=== PATIENT | male | born 1960 | race Two or more races ===

== ENCOUNTER 2024-07-23 12:55 | Outpatient (AMB) | payer MEDICARE, MEDICAID, SELFPAY ==
[2024-07-23 13:03] VITALS: BP 136/82; PULSE 54; RESP 18; TEMP 36.4; O2SAT 97; BMI 39.1
--- NOTE | 2024-07-23 13:03 | PD.ORTHCLVIS ---
Vital signs 07/23/24 13:03 Height 1.75 m Height Method Stated Weight 120.259 kg Weight Measurement Method Standing Scale BMI 39.1 BP 136/82 H Blood Pressure Source Automatic Cuff Blood Pressure Location Left Upper Arm Position Sitting Respiration 18 Pulse 54 L Pulse Source Monitor Temp 97.6 F Temp Source Temporal Artery Scan Pulse Oximetry (%) 97 Oxygen Delivery Method Room Air Med/Allergies Allergies & Medications Allergies No Known Allergies Allergy (Verified 07/23/24 13:03) Medication Reconciliation lisinopril 20 mg-hydrochlorothiazide 12.5 mg tablet 1 tab PO DAILY #0 tabs 12/25/14 [History Confirmed 07/23/24] doxazosin 2 mg tablet 2 mg PO HS 05/04/18 [History Confirmed 07/23/24] tramadol 50 mg tablet 1 tab PO BID PRN Pain 05/04/18 [History Confirmed 07/23/24] ibuprofen 800 mg tablet 800 mg PO Q8H #30 tabs 06/02/19 [Rx Confirmed 07/23/24] atorvastatin 20 mg tablet 20 mg PO HS 11/01/23 [History Confirmed 07/23/24] Exam Exam Breathing is nonlabored. Patient has a normal mood and affect. Bilateral extremities were evaluated and demonstrates sensation intact to light touch. Palpable pedal pulses are present. No significant edema is present. Bilateral hips were examined. The patient has no pain with log roll of the hips. Internal rotation to 30 degrees and external rotation to 30 degrees is painless. Negative FADIR. Left knee was examined today. The left knee is in reasonable alignment. Range of motion from 0-120 degrees. Knee is stable to varus and valgus as well as AP translation with <5mm. Patient has a negative McMurrays. There is no pain with patellofemoral compression and no crepitus noted. The knee is nontender to palpation. The right knee was also examined. The right knee is in varus alignment. Range of motion from 0-115 degrees. Knee is stable to varus and valgus as well as AP translation with <5mm. Patient has a negative McMurrays. There is no pain with patellofemoral compression and no crepitus noted. The knee is tender to palpation medially. An MRI demonstrates a medial meniscus tear as well as severe cartilage loss medially. His x-rays are nonweightbearing and we will get weightbearing films Assessment and Plan Problem List (1) Arthritis of right knee: Status: Acute Plan: Patient is a 64-year-old male with Right knee instability and right knee arthritis. I would like to start by obtaining weightbearing x-rays. We will likely set him up with physical therapy to work on subluxes stability. We will see him back once his x-rays are done Advanced Care Planning Discussion Advance care planning discussed with:: patient Office Procedures GNS Level of Care Nursing/Assessment Patient Status: Initial/New Patient Nursing Assessment/Reassesment: Medication Reconciliation, Update PMH in EMR and Vital Signs Coordination of Care: Complex Care and Chronic Disease 1-5, Education Complex Pt/Fam, Consent,records obtained, informed consent, Results/Orders obtained and Staff clarify orders Special Needs: Language special needs New Patient Charge New Patient Point Assignment: 1094 New Patient Point Charge: DATA SUPPORT SPECIALIST Level 3 (3610-1655) MA Intake Visit Data Collection New Patient or Established: Established Patient (seen at [facility] within 3 years) Reason for Visit:: RIGHT KNEE PAIN Seen by Clinical Staff ONLY (RN/MA): No 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 PCP or OBGYN visit in last 3 months: Yes Hx Now: No Do You Feel Safe at Home: Yes Authorities Contacted: N/A Questionairres Past Medical History Past Medical History Have you ever been diagnosed with any of the following: Neurological Problems Seizures: No Cardiology Problems Hypercholesterolemia: Yes (TAKES MED) Congestive Heart Failure: No Hypertension: Yes (TAKES MED) Respiratory Problems Chronic Obstructive Pulmonary Disease (COPD): No Tuberculosis: No Smoking: No Smoking Cessation Counseling: No Smoking Exposure: No Stomache/Intestinal Problems Hepatitis: No Colorectal Cancer: No Genital/Urinary Problems Renal Disease: No Prostate Cancer: No Benign Prostatic Hyperplasia: Yes (TAKES MED) Reproductive Problems Testicular Cancer: No Musculoskeletal Problems Bone Cancer: No Carpal Tunnel Syndrome: Yes (WALI) Endocrine Problems Diabetes Mellitus Type 1: No Diabetes Mellitus Type 2: No Blood Problems Clotting Problems: No Other Problems Falls: No Organ Transplant: No MRSA: No VRSA: No Vancomycin-Resistant Enterococci: No Measles: Yes Lung Cancer: No Subjective Visit Visit for: new patient and knee (RIGHT) Immunization / Flu Flu Vaccine in the Last 12 Months: Yes Flu Vaccine Exclusion Criteria: Already Received History of Present Illness Chief complaint: Right knee pain Patient is a pleasant 64-year-old male who present today for evaluation of his right knee. He was found to have right knee arthritis and a degenerative meniscal tear. He reports he does not trust his knee but has no pain at all. He cannot work because he does not trust his knee. Pain Pain level (0-10): 0 Pain duration: UNSTABLE Pain location: outside (lateral), anterior and posterior Pain quality: other (specify) Pain timing: stairs Associated signs & symptoms: weakness and stiffness Ambulatory data Ambulatory device: none Treatments Improvement with previous injections: No Improvement with PT: No Improvement with NSAIDS: no Review of Systems Review of Systems: All systems negative unless otherwise noted in HPI.
== END 2024-07-23 13:24 | disposition home or self-care (01) ==
LOC: HODSRG 12:55
PROVIDERS: PCP Internal Medicine; Referring Provider Internal Medicine; Supervising Provider Orthopaedic Surgery Adult Reconstructive Orthopaedic Surgery; Visit Provider Orthopaedic Surgery Adult Reconstructive Orthopaedic Surgery
DX: M17.11 Unilateral primary osteoarthritis, right knee (principal); M23.51 Chronic instability of knee, right knee; I10 Essential (primary) hypertension; E78.00 Pure hypercholesterolemia, unspecified
CPT/HCPCS: 99203; G0463

== ENCOUNTER → 2024-07-23 | Outpatient (CLI) | payer MEDICARE, MEDICAID, SELFPAY ==
--- NOTE | 2024-07-23 14:09 | XR_ITS ---
Examination: Right knee 4 views TECHNIQUE: AP oblique lateral axial right knee 4 views Exam date and time: July 23, 2024 1435 hours INDICATIONS: Right knee pain osteoarthritis 4 months FINDINGS: Moderate to advanced narrowing medial joint space right knee Mild osteoarthritis patellofemoral lateral joint spaces No fracture No patellar dislocation IMPRESSION: Moderate to advanced narrowing medial joint space right knee
== END | disposition home or self-care (01) ==
PROVIDERS: Referring Provider Orthopaedic Surgery Adult Reconstructive Orthopaedic Surgery; Visit Provider Orthopaedic Surgery Adult Reconstructive Orthopaedic Surgery
DX: M25.861 Other specified joint disorders, right knee (principal)
CPT/HCPCS: 73564

== ENCOUNTER → 2024-09-04 | Outpatient (CLI) | payer OTHER, SELFPAY ==
[2024-09-04 09:43] LABS: Glucose Estimated Average 131 mg/dL (80-131); Hemoglobin A1C 6.2 % Hgb (4.8-6.0)
[2024-09-04 09:54] LABS: Prostate Specific Antigen 0.11 ng/mL (0-4.00)
[2024-09-04 10:02] LABS: Alanine Aminotransferase 22 U/L (10-49); Albumin, Serum 4.3 gm/dL (3.4-4.8); Albumin/Globulin Ratio 1.8 (1.2-2.2); Alkaline Phosphatase 87 U/L (46-116); Anion Gap 10 (7-16); Aspartate Amino Transferase 18 U/L (0-34); BUN/Creatinine Ratio 21 Ratio (12-20); Bilirubin,Total 0.5 mg/dL (0.3-1.2); Blood Urea Nitrogen 17 mg/dL (9-23); Calcium 9.8 mg/dL (8.3-10.6); Calcium (Corrected) 9.8 mg/dL (8.5-10.1); Carbon Dioxide 29.4 mMol/L (20.0-31.0); Cardiac Risk Estimate 4.8 RATIO (4.0-6.7); Chloride 101 mMol/L (98-107); Cholesterol 158 mg/dL (132-200); Creatinine (Component) 0.8 mg/dL (0.6-1.3); Globulin 2.4 gm/dL (2.3-3.5); Glucose 128 mg/dL (74-106); HDL Cholesterol 33 mg/dL (40-60); LDL Cholesterol,Calculated 71 mg/dL (0-130); Osmolality,Calculated 282 (275-295); Potassium 4.4 mMol/L (3.4-5.1); Sodium 140 mMol/L (136-145); Total Protein 6.7 gm/dL (5.7-8.2); Triglycerides 271 mg/dL (30-150); eGFR > 60 See Note
== END | disposition home or self-care (01) ==
PROVIDERS: PCP Internal Medicine; Referring Provider Internal Medicine; Visit Provider Internal Medicine
DX: I10 Essential (primary) hypertension (principal); E78.5 Hyperlipidemia, unspecified
CPT/HCPCS: 36415; 80053; 80061; 83036; 84153; 84443

== ENCOUNTER 2024-09-24 14:51 | Outpatient (AMB) | payer OTHER, SELFPAY ==
[2024-09-24 15:28] VITALS: BP 137/73; PULSE 64; RESP 18; TEMP 36.8; O2SAT 92; BMI 39.9
--- NOTE | 2024-09-24 15:28 | PD.ORTHCLVIS ---
Vital signs 09/24/24 15:28 Height 1.75 m Height Method Stated Weight 122.158 kg Weight Measurement Method Standing Scale BMI 39.9 BP 137/73 H Blood Pressure Source Automatic Cuff Blood Pressure Location Right Upper Arm Position Sitting Respiration 18 Pulse 64 Pulse Source Monitor Temp 98.3 F Temp Source Temporal Artery Scan Pulse Oximetry (%) 92 L Oxygen Delivery Method Room Air Med/Allergies Allergies & Medications Allergies No Known Allergies Allergy (Verified 09/24/24 15:29) Medication Reconciliation lisinopril 20 mg-hydrochlorothiazide 12.5 mg tablet 1 tab PO DAILY #0 tabs 12/25/14 [History Confirmed 09/24/24] doxazosin 2 mg tablet 2 mg PO HS 05/04/18 [History Confirmed 09/24/24] tramadol 50 mg tablet 1 tab PO BID PRN Pain 05/04/18 [History Confirmed 09/24/24] Held on 11/02/23. Instructions: Resume on 11/03/23. ibuprofen 800 mg tablet 800 mg PO Q8H #30 tabs 06/02/19 [Rx Confirmed 09/24/24] atorvastatin 20 mg tablet 20 mg PO HS 11/01/23 [History Confirmed 09/24/24] Exam Exam Breathing is nonlabored. Patient has a normal mood and affect. Bilateral extremities were evaluated and demonstrates sensation intact to light touch. Palpable pedal pulses are present. No significant edema is present. Bilateral hips were examined. The patient has no pain with log roll of the hips. Internal rotation to 30 degrees and external rotation to 30 degrees is painless. Negative FADIR. Left knee was examined today. The left knee is in reasonable alignment. Range of motion from 0-120 degrees. Knee is stable to varus and valgus as well as AP translation with <5mm. Patient has a negative McMurrays. There is no pain with patellofemoral compression and no crepitus noted. The knee is nontender to palpation. The right knee was also examined. The right knee is in varus alignment. Range of motion from 0-115 degrees. Knee is stable to varus and valgus as well as AP translation with <5mm. Patient has a negative McMurrays. There is no pain with patellofemoral compression and no crepitus noted. The knee is tender to palpation medially. An MRI demonstrates a medial meniscus tear as well as severe cartilage loss medially. His x-rays are nonweightbearing and we will get weightbearing films Assessment and Plan Problem List (1) Arthritis of right knee: Status: Acute Plan: Patient is a 64-year-old male with Right knee instability and right knee arthritis. His x-rays demonstrate moderate arthritis. We will set him up with physical therapy as he has minimal pain Advanced Care Planning Discussion Advance care planning discussed with:: patient Office Procedures GNS Level of Care Nursing/Assessment Patient Status: Established Patient Nursing Assessment/Reassesment: Medication Reconciliation, Update PMH in EMR and Vital Signs Coordination of Care: Complex Care and Chronic Disease 1-5, Education Complex Pt/Fam, Consent,records obtained, informed consent, Results/Orders obtained and Staff clarify orders Special Needs: Language special needs Established Patient Charge Established Patient Point Assignment: 95 Established Patient Point Charge: EP Level 3 (80-115) MA Intake Visit Data Collection New Patient or Established: Established Patient (seen at [facility] within 3 years) Reason for Visit:: F/U XRAYS Seen by Clinical Staff ONLY (RN/MA): No Verbal consent obtained for Telemed visit?: No 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 PCP or OBGYN visit in last 3 months: Yes Hx Now: No Do You Feel Safe at Home: Yes Authorities Contacted: N/A Questionairres Past Medical History Past Medical History Have you ever been diagnosed with any of the following: Neurological Problems Seizures: No Cardiology Problems Hypercholesterolemia: Yes (TAKES MED) Congestive Heart Failure: No Hypertension: Yes (TAKES MED) Respiratory Problems Chronic Obstructive Pulmonary Disease (COPD): No Tuberculosis: No Smoking: No Smoking Cessation Counseling: No Smoking Exposure: No Stomache/Intestinal Problems Hepatitis: No Colorectal Cancer: No Genital/Urinary Problems Renal Disease: No Prostate Cancer: No Benign Prostatic Hyperplasia: Yes (TAKES MED) Reproductive Problems Testicular Cancer: No Musculoskeletal Problems Bone Cancer: No Carpal Tunnel Syndrome: Yes (WALI) Endocrine Problems Diabetes Mellitus Type 1: No Diabetes Mellitus Type 2: No Blood Problems Clotting Problems: No Other Problems Falls: No Organ Transplant: No MRSA: No VRSA: No Vancomycin-Resistant Enterococci: No Measles: Yes Lung Cancer: No Subjective Visit Visit for: follow up visit, knee and x-rays Immunization / Flu Flu Vaccine in the Last 12 Months: No Flu Vaccine Exclusion Criteria: No Exclusion Criteria History of Present Illness Chief complaint: XRAYS FOLLOW UP Patient is a pleasant 64-year-old male who present today for evaluation of his right knee. He was found to have right knee arthritis and a degenerative meniscal tear. He reports he does not trust his knee but has no pain at all. He cannot work because he does not trust his knee. He reports his knee pain is actually doing better. He has minimal pain and only feels some instability Pain Pain level (0-10): 0 Pain duration: COMES AND GOES Pain location: inside (medial), outside (lateral), anterior and posterior Pain quality: dull and aching Pain timing: increases with activity Associated signs & symptoms: weakness and stiffness Ambulatory data Ambulatory device: none Treatments Improvement with previous injections: No Improvement with PT: No Improvement with NSAIDS: no Review of Systems Review of Systems: All systems negative unless otherwise noted in HPI.
== END 2024-09-24 16:00 | disposition home or self-care (01) ==
LOC: HODSRG 14:51
PROVIDERS: PCP Internal Medicine; Referring Provider Internal Medicine; Supervising Provider Orthopaedic Surgery Adult Reconstructive Orthopaedic Surgery; Visit Provider Orthopaedic Surgery Adult Reconstructive Orthopaedic Surgery
DX: M17.11 Unilateral primary osteoarthritis, right knee (principal); E78.00 Pure hypercholesterolemia, unspecified; I10 Essential (primary) hypertension
CPT/HCPCS: 99213; G0463

== ENCOUNTER → 2024-12-10 | Outpatient (CLI) | payer OTHER, SELFPAY ==
[2024-12-10 09:39] LABS: Basophils # (Auto) 0.1 Thou/mm3 (0.0-0.2); Basophils % (Auto) 0 % (0-2.5); Eosinophils # (Auto) 0.1 Thou/mm3 (0.0-0.5); Eosinophils % (Auto) 1 % (0-10); Hematocrit 43.5 % (41.0-53.0); Hemoglobin 14.9 g/dL (13.5-16.0); Immature Granulocytes % (Auto) 0 % (0-0); Immature Granulocytes Auto 0.03 Thou/mm3 (0.00-0.00); Lymphocytes % (Auto) 18 % (10-50); Mean Corpuscular HGB Conc 34.3 g/dl (31.0-37.0); Mean Corpuscular Hemoglobin 28.3 pg (25.0-35.0); Mean Corpuscular Volume 83 fL (80-100); Monocytes # (Auto) 0.6 Thou/mm3 (0.0-0.8); Monocytes % (Auto) 6 % (0-12); Neutrophils # (Auto) 8.7 Thou/mm3 (1.8-7.7); Neutrophils % (Auto) 75 % (37-80); Nucleated Red Blood Cell % 0 /100 WBC (0); Platelet Count 228 Thou/mm3 (140-440); RDW Standard Deviation 39.8 fL (35.1-43.9); Red Blood Count 5.27 Miln/mm3 (4.50-5.90); White Blood Count 11.5 Thou/mm3 (3.8-10.6)
[2024-12-10 09:49] LABS: Collection Type, Urine Clean Catch
[2024-12-10 09:56] LABS: Glucose Estimated Average 128 mg/dL (80-131); Hemoglobin A1C 6.1 % Hgb (4.8-6.0)
[2024-12-10 10:13] LABS: Alanine Aminotransferase 20 U/L (10-49); Albumin, Serum 4.4 gm/dL (3.4-4.8); Albumin/Globulin Ratio 1.9 (1.2-2.2); Alkaline Phosphatase 91 U/L (46-116); Anion Gap 9 (7-16); Aspartate Amino Transferase 16 U/L (0-34); BUN/Creatinine Ratio 18 Ratio (12-20); Bilirubin,Total 0.8 mg/dL (0.3-1.2); Blood Urea Nitrogen 14 mg/dL (9-23); Calcium 9.3 mg/dL (8.3-10.6); Calcium (Corrected) 9.3 mg/dL (8.5-10.1); Carbon Dioxide 29.4 mMol/L (20.0-31.0); Cardiac Risk Estimate 4.3 RATIO (4.0-6.7); Chloride 100 mMol/L (98-107); Cholesterol 130 mg/dL (132-200); Creatinine (Component) 0.8 mg/dL (0.6-1.3); Globulin 2.3 gm/dL (2.3-3.5); Glucose 105 mg/dL (74-106); HDL Cholesterol 30 mg/dL (40-60); LDL Cholesterol,Calculated 56 mg/dL (0-130); Osmolality,Calculated 276 (275-295); Potassium 4.4 mMol/L (3.4-5.1); Sodium 138 mMol/L (136-145); Thyroid Stimulating Hormone 1.95 uIU/mL (0.55-4.78); Total Protein 6.7 gm/dL (5.7-8.2); Triglycerides 218 mg/dL (30-150); eGFR > 60 See Note
[2024-12-10 10:35] LABS: Bilirubin,Urine Negative (Negative); Blood,Urine Negative (Negative); Clarity,Urine Clear (Clear/Hazy); Color,Urine Lt-Yellow (Lt Yel-Yel); Glucose, Urine Negative (Negative); Ketones,Urine Negative (Negative); Leukocyte Esterase,Urine Negative (Negative); Nitrite,Urine Negative (Negative); Protein,Urine Negative (Neg - Trace); RBC,Urine 2 /hpf (0-3); Specific Gravity,Urine 1.015 (1.001-1.035); Squamous Epithelial Cell,Urine < 1 /hpf (0-5); Urobilinogen,Urine Negative mg/dL (0.0-1.0); WBC,Urine < 1 /hpf (0-5)
== END | disposition home or self-care (01) ==
PROVIDERS: PCP Internal Medicine; Referring Provider Internal Medicine; Visit Provider Internal Medicine
DX: I10 Essential (primary) hypertension (principal); E78.5 Hyperlipidemia, unspecified
CPT/HCPCS: 36415; 80053; 80061; 81001; 83036; 84443; 85025

== ENCOUNTER 2024-12-11 19:29 | Observation (INO) | payer OTHER, SELFPAY ==
[2024-12-11 19:29] VITALS: PULSE 74; RESP 16; O2SAT 99; BMI 38.0
[2024-12-11 20:21] VITALS: BP 125/66; PULSE 88; RESP 19; TEMP 37.1; O2SAT 96
--- NOTE | 2024-12-11 20:48 | PD.EDNV ---
Nausea/Vomit./Diarrhea-RME/HPI General Chief complaint: Abdominal Pain Stated complaint: ABD PAIN, DIARRHEA X 1DAY Time Seen by Provider: 12/11/24 20:30 Arrival date/time: 12/11/24 19:29 64M with history of HTN presents to ED with 1 day of N/V, ab cramping, and non-bloody diarrhea after he ate something. Limitations: no limitations Related Data Home Medications ?Medication ?Instructions ?Recorded ?Confirmed lisinopril 20 1 tab PO DAILY #0 tabs 12/25/14 09/24/24 mg-hydrochlorothiazide 12.5 mg tablet doxazosin 2 mg tablet 2 mg PO HS 05/04/18 09/24/24 tramadol 50 mg tablet 1 tab PO BID PRN Pain 05/04/18 09/24/24 Held on 11/02/23. Instructions: Resume on 11/03/23. atorvastatin 20 mg tablet 20 mg PO HS 11/01/23 09/24/24 Previous Rx's ?Medication ?Instructions ?Recorded ibuprofen 800 mg tablet 800 mg PO Q8H #30 tabs 06/02/19 Allergies Allergy/AdvReac Type Severity Reaction Status Date / Time No Known Allergies Allergy Verified 09/24/24 15:29 Review of Systems Review of Systems Systems Reviewed: All systems reviewed, normal except as documented Constitutional Constitutional: Reports system reviewed and no additional complaints, except as documented, Reports as per HPI, Reports chills, Reports fever(s) and Denies headache(s) ENT Ears, Nose, Mouth, and Throat: Denies disequilibrium and Denies headache(s) Cardiovascular Cardiovascular: Reports system reviewed and no additional complaints, except as documented, Denies chest pain and Denies dyspnea Respiratory Respiratory: Reports system reviewed and no additional complaints, except as documented, Denies cough and Denies dyspnea Gastrointestinal Gastrointestinal: Reports system reviewed and no additional complaints, except as documented, Reports as per HPI, Reports abdominal pain, Reports diarrhea, Reports nausea and Reports vomiting Neurologic Neurologic: Reports system reviewed and no additional complaints, except as documented, Denies confusion, Denies disequilibrium and Denies headache(s) Psychiatric Psychiatric: Denies confusion Past Medical History Past Medical History NEUROLOGIC: Negative Neurological Disorders or Seizures CARDIAC: Positive Cardiac Disorders, Hypercholesterolemia (TAKES MED) and Hypertension (TAKES MED); Negative Congestive Heart Failure RESPIRATORY: Negative Chronic Obstructive Pulmonary Disease (COPD), Tuberculosis, Smoking, Smoking Cessation Counseling or Smoking Exposure GASTROINTESTINAL: Negative Gastrointestinal Disorders, Hepatitis or Colorectal Cancer GENITOURINARY: Positive Genitourinary Disorders and Benign Prostatic Hyperplasia (TAKES MED); Negative Renal Disease or Prostate Cancer REPRODUCTIVE: Negative Testicular Cancer MUSCULOSKELETAL: Positive Carpal Tunnel Syndrome (WALI); Negative Musculoskeletal Disorders (mild right knee pain on occassion) or Bone Cancer ENDOCRINE: Negative Endocrine Disorders, Diabetes Mellitus Type 1 or Diabetes Mellitus Type 2 HEMATOLOGIC: Negative Blood Disorders or Clotting Problems OTHER HISTORY: Positive Measles; Negative Autoimmune Disease, Falls, Organ Transplant, MRSA, VRSA, Vancomycin-Resistant Enterococci, Colorectal Cancer, Lung Cancer, Prostate Cancer or Testicular Cancer Family History FAMILY HISTORY: Negative Family Psychiatric Problems, Family Respiratory Disorders, Family Cardiac Disorders (UNKNOWN), Family Gastrointestinal Problems, Family Cancer, Family Surgery or Family Anesthesia Reaction Surgical History SURGICAL: Positive Ear Surgery (right tympanoplasty x2) and Abdominal Surgery; Negative Cardiac Surgery, Endocrine Surgery, Nephrectomy, Transurethral Resection, Neurologic Surgery, Vasectomy or Organ Transplant Social History SMOKING STATUS: Never smoker ED Exam General Limitations: Present no limitations General appearance: Present alert and in no apparent distress Head Head exam: Present atraumatic Eye Eye exam: Present normal appearance, PERRL and EOMI ENT ENT exam: Present normal exam, normal oropharynx and mucous membranes moist Neck Neck exam: Present normal inspection, full ROM and trachea midline Chest Chest inspection: Present normal inspection and symmetric chest wall rise Respiratory Respiratory exam: Present normal lung sounds bilaterally Cardiovascular Cardiovascular exam: Present regular rate, normal rhythm and normal heart sounds Abdominal Exam Abdominal exam: Present soft and normal bowel sounds Extremities Exam Extremities exam: Present normal inspection and full ROM Back Exam Back exam: Present normal inspection and full ROM Neurological Exam Neurological exam: Present alert, oriented X3 and CN II-XII intact Psychiatric Psychiatric exam: Present normal affect and normal mood Skin Skin exam: Present warm, dry, intact and normal color Course Quality Measures none Orders Category Date Time Status Place in Observation Status Routine Admission 12/12/24 05:08 Active Bedside COVID-19 Antigen Test NOW Care 12/11/24 23:17 Active Bedside Influenza A&B Antigen Test NOW Care 12/11/24 23:17 Completed COVID-19 Screening Questionnaire NOW Care 12/12/24 01:37 Active Decision to Admit X1 Care 12/12/24 01:37 Completed Insert IV NOW Care 12/11/24 22:14 Active NPO NOW Care 12/12/24 05:09 Active Diet NPO (NOW) Diet 12/12/24 05:[address] abdomen pelvis wo con Stat Exams 12/11/24 22:13 Taken Blood Culture (Lab) Stat Lab 12/11/24 21:20 Received CBC Stat Lab 12/11/24 21:26 Completed CMP [Comprehensive Metabolic Panel] Stat Lab 12/11/24 21:26 Completed Drug Screen,Urine Stat Lab 12/12/24 00:42 Completed Lactate (Lactic Acid) Stat Lab 12/11/24 21:26 Completed Lactic Acid, 3 HR Stat Lab 12/12/24 01:14 Completed Lipase Stat Lab 12/11/24 21:26 Completed Procalcitonin Stat Lab 12/11/24 21:26 Completed Urinalysis, C/S if Indicated Stat Lab 12/12/24 02:40 Completed Urine Culture Stat Lab 12/12/24 02:40 Received Acetaminophen Tab [Tylenol ES Tab] Med 12/11/24 23:00 Discontinued 1,000 mg PO X1 ONE Azithromycin Inj [Zithromax Inj] 500 mg Med 12/11/24 22:16 Discontinued Sodium Chloride 0.9% 250 ml [Ns] 250 ml IV X1 CIPROFLOXACIN/D5w 400 MG IVPB [Cipro Ivpb] Med 12/12/24 05:11 Ordered 400 mg in 200 ml IV Q12HR Ondansetron Odt [Zofran Odt] Med 12/11/24 20:36 Discontinued 4 mg PO X1 ONE Ringers Lactated 1000 ml [Lactated Ringers] 1,000 ml Med 12/11/24 22:15 Active IV 100 mls/hr Sodium Chloride 0.9% 1000 ml [Ns] 1,000 ml Med 12/12/24 05:10 Ordered IV 125 mls/hr Sodium Chloride 0.9% 1000 ml [Ns] 1,000 ml Med 12/11/24 22:14 Discontinued IV 999 mls/hr Sodium Chloride 0.9% 1000 ml [Ns] 1,000 ml Med 12/12/24 01:37 Discontinued IV 999 mls/hr Code Status Routine Oth 12/12/24 05:09 Ordered Vital Signs Vital signs: Vital Signs Temperature 98.8 F 12/11/24 20:21 Pulse Rate 88 12/11/24 20:21 Respiratory Rate 19 12/11/24 20:21 Blood Pressure 125/66 05/28/25 20:21 Pulse Oximetry (%) 96 12/11/24 20:21 Oxygen Delivery Method Room Air 12/11/24 20:21 O2 at 96% on RA and WNLs Nausea/Vomiting/Diarrhea MDM Narrative MDM Narrative:: 64M with history of HTN presents to ED with 1 day of N/V, ab cramping, and non-bloody diarrhea after he ate something. Also, some fevers/chills. Physical exam reveals no ab tenderness/guarding. Patient is afebrile, calm, but appears tired. Significant leukocytosis. CMP mildly low sodium. Cr elevated 2.2, but normal LFTs. Procal mildly elevated. Lactate 2.5, decreased to WNLs after IVF. Patient then developed a fever of 101. Sepsis alert called. UA possible UTI. CT mild colitis and possible cystitis. Swabs neg. Upon reassessment, patient is feeling better after meds. Spoke to Dr. Rojas IM, who will admit the patient. Patient data External records reviewed:: [facility] previous records Clinical information provided by:: patient Social determinants that could affect healthcare access:: none Patient has the following chronic illnesses:: HTN How is presenting disease/condition affected by chronic disease/condition?: uneffected by Evaluation data The following diagnostics were reviewed and interpreted by me:: lab results Lab and/or radiology exams considered but not ordered:: ordered Interpretation Summary: above Medications / Prescriptions Medications / Prescriptions considered but not ordered:: ordered Medication administrations:: Medication Administration History Lactated Ringer's (Lactated Ringers) 1,000 mls @ 100 mls/hr IV .Q10H JUNIOR Stop: 01/10/25 22:14 Last Admin: 12/12/24 00:40 Dose: 100 mls/hr Documented By: CVL Sodium Chloride (Ns) 1,000 mls @ 125 mls/hr IV .Q8H ONE Stop: 12/12/24 13:09 Ciprofloxacin/Dextrose (Cipro Ivpb) 400 mg in 200 mls @ 200 mls/hr IV Q12HR JUNIOR Stop: 12/19/24 05:10 Discontinued Medications Acetaminophen (Acetaminophen 500 Mg Tablet) 1,000 mg PO X1 ONE Stop: 12/11/24 23:01 Last Admin: 12/11/24 23:14 Dose: 1,000 mg Documented By: CVL Sodium Chloride (Ns) 1,000 mls @ 999 mls/hr IV .Q1H1M ONE Stop: 12/11/24 23:14 Last Infusion: 12/11/24 23:59 Dose: Infused Documented By: Admin: 12/11/24 23:01 Dose: 999 mls/hr Documented By: CVL Azithromycin 500 mg/ Sodium (Chloride) 250 mls @ 250 mls/hr IV X1 ONE Stop: 12/11/24 23:15 Last Infusion: 12/12/24 00:18 Dose: Infused Documented By: Admin: 12/11/24 23:07 Dose: 250 mls/hr Documented By: CVL Sodium Chloride (Ns) 1,000 mls @ 999 mls/hr IV .Q1H1M ONE Stop: 12/12/24 02:37 Last Infusion: 12/12/24 02:40 Dose: Infused Documented By: Admin: 12/12/24 01:44 Dose: 999 mls/hr Documented By: CVL Ondansetron HCl (Ondansetron Odt 4 Mg Tabrap) 4 mg PO X1 ONE; Protocol Stop: 12/11/24 20:37 Last Admin: 12/11/24 20:57 Dose: 4 mg Documented By: SIA above Consultations Consultation(s) initiated? (list below): Yes Diagnosis Nausea Differential Diagnosis: traveler's diarrhea, food poisoning, gastroenteritis, clostridium difficile infection, drug-induced nausea and vomiting and dehydration Most likely diagnosis given after review of the tests above:: food poisoning Admission Indicated Admission indicated?: indicated Admission Request Was there a request for admission?: Yes Admission Attestation Admission request attestation: Discussed case with [Dr. Rojas] from Hospitalist service regarding admission. Discussed patients ED course, exam findings, labs, and radiology results. The Hospitalist [agrees] to accept the patient for admission. Disposition Plan Disposition Plan: Admit Discharge Plan Plan Patient Disposition: Other Care w/in Hosp ([facility]) Prescriptions/Referrals Prescriptions/Med Rec: No Action ibuprofen 800 mg tablet 800 mg PO Q8H Qty: 30 0RF lisinopril-hydrochlorothiazide 20-12.5 mg Tablet 1 tab PO DAILY Qty: 0 tramadol 50 mg Tablet 1 tab PO BID PRN (Reason: Pain) doxazosin 2 mg Tablet 2 mg PO HS atorvastatin 20 mg tablet 20 mg PO HS Referrals: Joon Rojas MD [Primary Care Provider] - In 1 week Problem List Clinical Impression: Food poisoning Patient/Caregiver Discharge Instructions Print Language: Chinese Stand Alone Forms: [facility] Award Info., Patient Portal Info Letter
[2024-12-11] MEDS: ONDANSETRON ODT 4 MG TABRAP PO (20:57)
[2024-12-11 21:47] LABS: Basophils # (Auto) 0.1 Thou/mm3 (0.0-0.2); Basophils % (Auto) 1 % (0-2.5); Eosinophils # (Auto) 0.1 Thou/mm3 (0.0-0.5); Eosinophils % (Auto) 0 % (0-10); Hematocrit 45.1 % (41.0-53.0); Hemoglobin 15.8 g/dL (13.5-16.0); Immature Granulocytes % (Auto) 1 % (0-0); Immature Granulocytes Auto 0.15 Thou/mm3 (0.00-0.00); Lymphocytes # (Auto) 1.2 Thou/mm3 (1.0-4.8); Lymphocytes % (Auto) 6 % (10-50); Mean Corpuscular Hemoglobin 28.3 pg (25.0-35.0); Mean Corpuscular Volume 81 fL (80-100); Monocytes # (Auto) 1.4 Thou/mm3 (0.0-0.8); Monocytes % (Auto) 7 % (0-12); Neutrophils # (Auto) 17.8 Thou/mm3 (1.8-7.7); Neutrophils % (Auto) 86 % (37-80); Nucleated Red Blood Cell % 0 /100 WBC (0); Platelet Count 222 Thou/mm3 (140-440); RDW Standard Deviation 40.4 fL (35.1-43.9); Red Blood Count 5.58 Miln/mm3 (4.50-5.90); White Blood Count 20.7 Thou/mm3 (3.8-10.6)
[2024-12-11 21:48] LABS: Lactate (Lactic Acid) 2.5 mMol/L (0.4-2.0)
[2024-12-11 22:09] LABS: Anion Gap 14 (7-16); BUN/Creatinine Ratio 6 Ratio (12-20); Blood Urea Nitrogen 14 mg/dL (9-23); Carbon Dioxide 26.3 mMol/L (20.0-31.0); Chloride 92 mMol/L (98-107); Creatinine (Component) 2.2 mg/dL (0.6-1.3); Potassium 3.6 mMol/L (3.4-5.1); Sodium 132 mMol/L (136-145)
[2024-12-11 22:10] LABS: Alanine Aminotransferase 16 U/L (10-49); Albumin, Serum 4.6 gm/dL (3.4-4.8); Albumin/Globulin Ratio 1.6 (1.2-2.2); Alkaline Phosphatase 87 U/L (46-116); Aspartate Amino Transferase 15 U/L (0-34); Bilirubin,Total 0.8 mg/dL (0.3-1.2); Estimated Creatinine Clearance 41.7 mL/min (>60); Globulin 2.8 gm/dL (2.3-3.5); Glucose 148 mg/dL (74-106); Lipase 26 U/L (12-53); Osmolality,Calculated 268 (275-295); Procalcitonin 0.71 ng/ml (0.0-0.49); Total Protein 7.4 gm/dL (5.7-8.2); eGFR 32 See Note
--- NOTE | 2024-12-11 22:13 | XR_ITS ---
Examination: CT abdomen and pelvis without contrast. Coronal 3-D reconstructions. Sagittal 2-D reconstructions. Date and time of exam:December 12, 2024 0016 hours INDICATIONS: Abdominal pain nausea vomiting today CTDI: vol (mGy): 15.4 DLP: (mGycm): 969 Technique: Axial images of the abdomen have been obtained, 3 mm slice thickness Intravenous contrast material has not been administered. Low dose protocols were performed. One or more of the following dose reduction techniques were used; automated exposure control, adjustment of the mA and/or KV according to patient size, use of iterative reconstruction technique. Findings: No focal liver or splenic lesion No gallstones No pancreatic or adrenal mass Minimal perinephric stranding No renal or ureteral calculi, no hydronephrosis Aorta normal size Normal appendix The entire colon shows mild wall thickening No significant prostatomegaly Significant thickening of the urinary bladder wall IMPRESSION: Mild diffuse colitis Diffuse thickening of the urinary bladder wall up to 12 mm, differential would include cystitis
[2024-12-11 22:56] VITALS: BP 104/55; PULSE 74; RESP 16; TEMP 38.5; O2SAT 97
[2024-12-11] MEDS: SODIUM CHLORIDE 0.9% 1000 ML 1,000 ML 999 ML IV (23:01)
[2024-12-11] MEDS: AZITHROMYCIN INJ 500 MG in SODIUM CHLORIDE 0.9% 250 ML 250 ML 250 MG IV (23:07)
[2024-12-11 23:14] VITALS: TEMP 38.5
[2024-12-11] MEDS: ACETAMINOPHEN 500 MG TABLET 1000 MG PO (23:14)
[2024-12-12] VITALS (9 sets, daily range): BP systolic 113–140; BP diastolic 53–72; PULSE 67–85; RESP 18–20; TEMP 36.1–37.5; O2SAT 94–97; BMI 36.6
[2024-12-12 00:36] LABS: Reflex Lactate? Y
[2024-12-12] MEDS: RINGERS LACTATED 1000 ML 1,000 ML 100 ML IV (00:40)
[2024-12-12 01:23] LABS: Lactic Acid, 3 HR 1.2 mMol/L (0.4-2.0)
--- NOTE | 2024-12-12 01:27 | PRELIM_ITS ---
CT scan of the abdomen and pelvis without intravenous contrast (axial sections with sagittal and coronal reformats) December 12, 2024 0016 hours Clinical History: N/V, diarrhea Comparison: No prior study is available for comparison. Findings: The lung bases are clear. The liver, gallbladder, pancreas, spleen, kidneys and adrenals are unremarkable on this noncontrast study. No evidence of bowel obstruction. There is apparent thickening versus underdistention of the cecum and ascending colon. The appendix is within normal limits (coronal 88/188). There is no mesenteric or retroperitoneal adenopathy. The urinary bladder wall is thickened. There is no free fluid or free air. Degenerative changes are identified in the spine. Impression: Apparent thickening versus underdistention of the cecum and ascending colon. The possibility of colitis cannot be excluded. Recommend clinical correlation. Findings suggestive of cystitis. Recommend clinical and laboratory correlation. Other findings as described above. Report Electronically Signed By: Angel Luis Stark 12/12/2024 1:27:13 AM [EST]
[2024-12-12 01:40] LABS: Amphetamine/Methamp Scrn,U Negative (Negative); Barbiturate Screen,Urine Negative (Negative); Benzodiazepines Screen,Urine Negative (Negative); Benzoylecgonine Screen, Ur Negative (Negative); Fentanyl Screen,Urine Negative (Negative); Opiate Screen,Urine Negative (Negative); THC Screen,Urine Negative (Negative)
[2024-12-12] MEDS: SODIUM CHLORIDE 0.9% 1000 ML 1,000 ML 999 ML IV (01:44)
[2024-12-12 02:47] LABS: Collection Type, Urine Clean Catch
[2024-12-12 03:01] LABS: Bacteria,Urine 1+; Bilirubin,Urine Negative (Negative); Blood,Urine Trace (Negative); Clarity,Urine Turbid (Clear/Hazy); Color,Urine Yellow (Lt Yel-Yel); Glucose, Urine Trace (Negative); Hyaline Casts,Urine < 1 /hpf (0-1); Ketones,Urine Negative (Negative); Leukocyte Esterase,Urine Negative (Negative); Nitrite,Urine Negative (Negative); PH,Urine 5.5 (5.0-7.0); Protein,Urine 1+ (Neg - Trace); RBC,Urine 5 /hpf (0-3); Specific Gravity,Urine 1.021 (1.001-1.035); Squamous Epithelial Cell,Urine 2 /hpf (0-5); Urobilinogen,Urine Negative mg/dL (0.0-1.0); WBC,Urine 26 /hpf (0-5)
[2024-12-12 03:07] LABS: Culture Indicated,Urine Yes
[2024-12-12] MEDS: CIPROFLOXACIN/D5w 400 MG IVPB 400 MG/200 ML BAG 200 MG IV ×2 (05:24→20:44)
[2024-12-12] MEDS: SODIUM CHLORIDE 0.9% 1000 ML 1,000 ML 125 ML IV (05:24)
--- NOTE | 2024-12-12 09:27 | ESHP_ITS ---
Documentation for date of: 12/12/24 HPI History of Present Illness Chief complaint: Diarrhea History of present illness: 64 y/o M w/ PMHx HTN presented to ED with chief complaint of abdominal pain and diarrhea. Patient states that the day before symptoms started he had a chicken burger in [place], shortly thereafter he began experiencing profuse watery diarrhea (nonbloody) with associated abdominal pain prompting ED visit. Patient vital stable on presentation, however did develop fever of 101.3. Patient endorses minimal nausea without vomiting, denies fever, chills, chest pain, shortness of breath. Patient reports decreased appetite. Patient admitted for colitis with dehydration. ED COURSE: Labs significant for: WBC 20.7, hemoglobin 15.8, sodium 132, potassium 3.6, bicarb 26.3, BUN 14, creatinine 2.2, EGFR 32. Pro-Kartik 0.71, lactic acid 2.5 decreased to 1.2 with IVF. Urinalysis showed 26 WBCs with 1+ bacteria, U tox negative. Imaging significant for: Mild perinephric stranding, mild thickening of the entire colon wall, significant thickening of bladder wall. Patient received 2 L fluid bolus and azithromycin in the ED. Patient seen examined at bedside, resting comfortably. Patient endorsed mild discomfort but significant improvement since admission. Denied fever, chills, chest pain, shortness of breath. Patient endorsed watery diarrhea with 6 bowel movements yesterday, however says no bowel movements this morning. Will continue with IVF. Review of Systems Review of Systems Systems Reviewed: All systems reviewed, normal except as documented Exam Vital Signs Temp Pulse Resp BP Pulse Ox O2 Del Method 97.3 F 73 18 126/72 95 Room Air 12/12/24 08:00 12/12/24 08:00 12/12/24 08:00 12/12/24 08:00 12/12/24 08:00 12/12/24 08:00 Narrative Exam PE: Gen: Well-developed and well-nourished. HEENT: NCAT, PERRLA, EOMI, MMM, anicteric conjunctivae. CVS: normal S1 and S2. RRR. No M/R/G. Resp: CTA B/L. No rhonchi, rales, crackles or wheezing. Abd: soft, non-distended. Moderate tenderness bilateral lower quadrants. MSK: Good ROM in BUE & BLE. No edema or rash. Neuro: CN II-XII grossly intact. Strength 5/5 in BUE & BLE. Alert and oriented x3. Psych: appropriate mood and affect. Results: Labs 12/13/24 04:12/13/24 04:29 Labs: Short CBC 12/11/24 Range/Units 21:26 WBC 20.7 H D (3.8-10.6) Thou/mm3 Hgb 15.8 (13.5-16.0) g/dL Hct 45.1 (41.0-53.0) % Plt Count 222 (140-440) Thou/mm3 BMP 12/11/24 21:26 Sodium 132 L Potassium 3.6 D Chloride 92 L Carbon Dioxide 26.3 BUN 14 Creatinine 2.2 H D Glucose 148 H Calcium 10.0 Liver Function 12/11/24 Range/Units 21:26 Total Bilirubin 0.8 (0.3-1.2) mg/dL AST 15 (0-34) U/L ALT 16 (10-49) U/L Alkaline Phosphatase 87 (46-116) U/L Albumin 4.6 (3.4-4.8) gm/dL Urine 12/12/24 12/12/24 Range/Units 00:42 02:40 Urine Color Cancelled Yellow Urine Clarity Cancelled Turbid A Urine pH Cancelled 5.5 Ur Specific [place] Cancelled 1.021 Urine Protein Cancelled 1+ A Urine Glucose (UA) Cancelled Trace Quality Measures Quality Measures VTE prophylaxis Advance care planning discussed with:: patient Medications Home Medications and Allergies Home Medications ?Medication ?Instructions ?Recorded ?Confirmed ?Type lisinopril 20 1 tab PO DAILY #0 tabs 12/2512/12/24 History mg-hydrochlorothiazide 12.5 mg tablet doxazosin 2 mg tablet 2 mg PO HS 05/04/18 12/12/24 History tramadol 50 mg tablet 1 tab PO BID PRN Pain 12/12/24 History Held on 11/02/23. Instructions: Resume on 11/03/23. atorvastatin 20 mg tablet 20 mg PO HS 11/01/23 5 History Allergies Allergy/AdvReac Type Severity Reaction Status Date / Time No Known Allergies Allergy Verified 09/24/24 15:29 Visit Medications Acetaminophen (Acetaminophen 325 Mg Tablet) 650 mg PO Q6H PRN PRN Reason: Fever >100.4 or pain Stop: 01/11/25 09:18 Hydrocodone Bitart/Acetaminophen (Hydrocodone/Apap 5/325 Tablet) 1 tab PO Q4HR PRN PRN Reason: PAIN SCALE 4-10(Mod-Sev Stop: 12/17/24 09:18 Heparin Sodium (Porcine) (Heparin Sod Inj 5000 Unit/Ml Vial) 5,000 unit SC Q12HR [facility] Stop: 12/26/24 20:59 Sodium Chloride (Ns) 1,000 mls @ 125 mls/hr IV .Q8H ONE Stop: 12/12/24 13:09 Last Admin: 12/12/24 05:24 Dose: 125 mls/hr Ciprofloxacin/Dextrose (Cipro Ivpb) 400 mg in 200 mls @ 200 mls/hr IV Q12HR [facility] Stop: 12/19/24 05:10 Last Infusion: 12/12/24 06:26 Dose: Infused Ondansetron HCl (Ondansetron Inj 2 Mg/Ml Inj 2 Ml) 4 mg IVP Q6H PRN; Protocol PRN Reason: NAUSEA OR VOMITING Stop: 01/11/25 09:18 Discontinued Medications Acetaminophen (Acetaminophen 500 Mg Tablet) 1,000 mg PO X1 ONE Stop: 12/11/24 23:01 Last Admin: 12/11/24 23:14 Dose: 1,000 mg Sodium Chloride (Ns) 1,000 mls @ 999 mls/hr IV .Q1H1M ONE Stop: 12/11/24 23:14 Last Infusion: 12/11/24 23:59 Dose: Infused Lactated Ringer's (Lactated Ringers) 1,000 mls @ 100 mls/hr IV .Q10H [facility]UN[facility] Stop: 01/10/25 22:14 Last Infusion: 12/12/24 05:22 Dose: 0 mls/hr Azithromycin 500 mg/ Sodium (Chloride) 250 mls @ 250 mls/hr IV X1 ONE Stop: 12/11/24 23:15 Last Infusion: 12/12/24 00:18 Dose: Infused Sodium Chloride (Ns) 1,000 mls @ 999 mls/hr IV .Q1H1M ONE Stop: 12/12/24 02:37 Last Infusion: 12/12/24 02:40 Dose: Infused Ondansetron HCl (Ondansetron Odt 4 Mg Tabrap) 4 mg PO X1 ONE; Protocol Stop: 12/11/24 20:37 Last Admin: 12/11/24 20:57 Dose: 4 mg Assessment & Plan Plan 64 y/o M w/ PMHx HTN presented to ED with chief complaint of abdominal pain and diarrhea, admitted for colitis with dehydration. #Acute diarrhea #Colitis Patient presented with complaints of 1 day of profuse watery nonbloody diarrhea. Patient ported 6 bowel movements yesterday, none today. Patient was severely dehydrated conversation, received 2 L fluid bolus in the ED. Patient given azithromycin in the ED. CT A/P showed diffuse colon wall thickening. Suspect food poisoning, patient reports eating chicken burger shortly before symptom onset. - IVF: Normal saline at 125 mL/h - Ciprofloxacin 40 mg IV every 12 hour - Zofran as needed for nausea/vomiting - Tylenol as needed for fever/pain - [place] 5 every 4 hours as needed for breakthrough pain #UTI Urinalysis indicates infection with 26 WBC, 1+ bacteria. Blood and urine cultures pending. Patient denies dysuria. CT A/P showed mild perinephric stranding, thickened bladder wall consistent with cystitis. - IVF as above - Cipro as above - Follow blood and urine culture #NITHYA, likely prerenal Patient has elevated creatinine with decreased GFR: Creatinine 2.2 and EGFR 32. Baseline creatinine 0.8. Likely prerenal in the setting of dehydration secondary to diarrhea. - Fluid repletion as above - Avoid nephrotoxins - Monitor daily labs - Renally dose meds #HTN, patient history - Patient history as stated.Holding home medication in setting of NITHYA DVT prophylaxis: Heparin GI prophylaxis: None Diet: N.p.o. Lines: Peripheral IV Code status: Full code Plan of care discussed with attending Dr. Rojas. Thierry Renee MD PGY?1 Attending Provider Attestation/Addendum Patient seen and examined with resident physician Dr. Nuno. Note reviewed, agree with findings and recommendations. Admitted with gastroenteritis.
[2024-12-12] MEDS: HYDROcodone/APAP 5/325 TABLET 1 TAB PO (10:27)
[2024-12-12] MEDS: HEPARIN SOD INJ 5000 UNIT/ML VIAL SC (20:44)
[2024-12-13] VITALS: BP 131/63; PULSE 71; RESP 18; TEMP 36.2; O2SAT 93
[2024-12-13 04:00] VITALS: BP 123/64; PULSE 67; RESP 18; TEMP 36.7; O2SAT 97
[2024-12-13 05:11] LABS: Basophils # (Auto) 0.1 Thou/mm3 (0.0-0.2); Basophils % (Auto) 1 % (0-2.5); Eosinophils # (Auto) 0.1 Thou/mm3 (0.0-0.5); Eosinophils % (Auto) 1 % (0-10); Hematocrit 39.6 % (41.0-53.0); Hemoglobin 13.4 g/dL (13.5-16.0); Immature Granulocytes % (Auto) 1 % (0-0); Immature Granulocytes Auto 0.07 Thou/mm3 (0.00-0.00); Lymphocytes # (Auto) 1.9 Thou/mm3 (1.0-4.8); Lymphocytes % (Auto) 15 % (10-50); Mean Corpuscular HGB Conc 33.8 g/dl (31.0-37.0); Mean Corpuscular Hemoglobin 28.3 pg (25.0-35.0); Mean Corpuscular Volume 84 fL (80-100); Monocytes # (Auto) 0.9 Thou/mm3 (0.0-0.8); Monocytes % (Auto) 7 % (0-12); Neutrophils # (Auto) 9.9 Thou/mm3 (1.8-7.7); Neutrophils % (Auto) 77 % (37-80); Nucleated Red Blood Cell % 0 /100 WBC (0); Platelet Count 202 Thou/mm3 (140-440); RDW Standard Deviation 41.8 fL (35.1-43.9); Red Blood Count 4.73 Miln/mm3 (4.50-5.90); White Blood Count 12.9 Thou/mm3 (3.8-10.6)
[2024-12-13 05:14] LABS: INR 1.1 (0.9-1.3); Prothrombin Time 11.9 Seconds (9.0-12.2)
[2024-12-13 06:17] LABS: Alanine Aminotransferase 10 U/L (10-49); Albumin, Serum 3.8 gm/dL (3.4-4.8); Albumin/Globulin Ratio 1.9 (1.2-2.2); Alkaline Phosphatase 67 U/L (46-116); Anion Gap 9 (7-16); Aspartate Amino Transferase 14 U/L (0-34); BUN/Creatinine Ratio 9 Ratio (12-20); Bilirubin,Total 0.4 mg/dL (0.3-1.2); Blood Urea Nitrogen 9 mg/dL (9-23); Calcium 8.5 mg/dL (8.3-10.6); Calcium (Corrected) 8.7 mg/dL (8.5-10.1); Carbon Dioxide 27.1 mMol/L (20.0-31.0); Chloride 102 mMol/L (98-107); Estimated Creatinine Clearance 89.9 mL/min (>60); Glucose 110 mg/dL (74-106); Magnesium 1.8 mg/dL (1.6-2.6); Osmolality,Calculated 275 (275-295); Phosphorous 2.5 mg/dL (2.4-5.1); Potassium 3.5 mMol/L (3.4-5.1); Sodium 138 mMol/L (136-145); Total Protein 5.8 gm/dL (5.7-8.2); eGFR > 60 See Note
[2024-12-13 08:00] VITALS: BP 128/63; PULSE 91; RESP 18; TEMP 36.5; O2SAT 94
[2024-12-13] MEDS: CIPROFLOXACIN/D5w 400 MG IVPB 400 MG/200 ML BAG 200 MG IV (08:21)
--- NOTE | 2024-12-13 11:48 | ESDS_ITS ---
Planned Discharge Date 12/13/24 DS: Providers Provider Date of admission: 12/12/24 05:07 Primary care physician: Joon Rojas MD Admitting Provider: Joon Rojas MD Attending Provider on Admission: Joon Rojas MD Attending Provider on DC: Joon Rojas MD Discharging Provider: Joon Rojas MD Discharge Diagnosis Discharge Diagnosis (1) Food poisoning: Status: Acute Assessment & Plan: 64 y/o M w/ PMHx HTN presented to ED with chief complaint of abdominal pain and diarrhea, admitted for colitis with dehydration. #Acute diarrhea #Colitis Patient presented with complaints of 1 day of profuse watery nonbloody diarrhea. Patient ported 6 bowel movements yesterday, none today. Patient was severely dehydrated conversation, received 2 L fluid bolus in the ED. Patient given azithromycin in the ED. CT A/P showed diffuse colon wall thickening. Suspect food poisoning, patient reports eating chicken burger shortly before symptom onset. Marked improvement with antibiotics. He is going to be discharged on p.o. Cipro. #UTI Urinalysis indicates infection with 26 WBC, 1+ bacteria. Blood and urine cultures negative. Patient denies dysuria. CT A/P showed mild perinephric st randing, thickened bladder wall consistent with cystitis. - Will discharge him on p.o. Cipro #NITHYA, likely prerenal Creatinine improved with fluids #HTN, patient history resume home blood pressure medication Problem List Completed Was Problem List Reviewed/Reconciled?: Yes Hospital Course Hospital Course Hospital course: 64 y/o M w/ PMHx HTN presented to ED with chief complaint of abdominal pain and diarrhea. Patient states that the day before symptoms started he had a chicken burger in [place], shortly thereafter he began experiencing profuse watery diarrhea (nonbloody) with associated abdominal pain prompting ED visit. Patient vital stable on presentation, however did develop fever of 101.3. Patient endorses minimal nausea without vomiting, denies fever, chills, chest pain, shortness of breath. Patient reports decreased appetite. Patient admitted for colitis with dehydration. ED COURSE: Labs significant for: WBC 20.7, hemoglobin 15.8, sodium 132, potassium 3.6, bicarb 26.3, BUN 14, creatinine 2.2, EGFR 32. Pro-Kartik 0.71, lactic acid 2.5 decreased to 1.2 with IVF. Urinalysis showed 26 WBCs with 1+ bacteria, U tox negative. Imaging significant for: Mild perinephric stranding, mild thickening of the entire colon wall, significant thickening of bladder wall. Patient received 2 L fluid bolus and azithromycin in the ED. Patient seen examined at bedside, resting comfortably. Patient endorsed mild discomfort but significant improvement since admission. Denied fever, chills, chest pain, shortness of breath. Patient endorsed watery diarrhea with 6 bowel movements yesterday, however says no bowel movements this morning. Will continue with IVF. 12/13/2024 patient currently seen in medical floor. Diarrhea, nausea, vomiting better. Abdominal pain improved. White count markedly improved to 12.5. Electrolytes stable. He is going to be discharged on Cipro. Plan of care discussed with with his at bedside Status at Discharge Cognitive/behavioral status at discharge: Stable Functional status at discharge: independent ambulation Overall status at discharge: patient is back to baseline Time Spent with Patient Time attestation: Total time spent providing and/or coordinating discharge services:35 min. Exam Vital Signs Temp Pulse Resp BP Pulse Ox O2 Del Method 36.5 C 91 18 128/63 94 L Room Air 12/13/24 08:00 12/13/24 08:00 12/13/24 08:00 12/13/24 08:00 12/13/24 08:00 12/13/24 08:00 Narrative Exam PE: Gen: Well-developed and well-nourished. HEENT: NCAT, PERRLA, EOMI, MMM, anicteric conjunctivae. CVS: normal S1 and S2. RRR. No M/R/G. Resp: CTA B/L. No rhonchi, rales, crackles or wheezing. Abd: soft, non-distended. Nontender MSK: Good ROM in BUE & BLE. No edema or rash. Neuro: CN II-XII grossly intact. Strength 5/5 in BUE & BLE. Alert and oriented x3. Psych: appropriate mood and affect. Discharge Plan Plan Patient Disposition: HOME (Self Care) Prescriptions/Referrals Prescriptions/Med Rec: New ciprofloxacin HCl [Cipro] 500 mg tablet 500 mg PO BID Qty: 14 0RF Continued lisinopril-hydrochlorothiazide 20-12.5 mg Tablet 1 tab PO DAILY Qty: 0 tramadol 50 mg Tablet 1 tab PO BID PRN (Reason: Pain) doxazosin 2 mg Tablet 2 mg PO HS atorvastatin 20 mg tablet 20 mg PO HS Discontinued ibuprofen 800 mg tablet 800 mg PO Q8H Qty: 30 0RF Referrals: Joon Rojas MD [Primary Care Provider] - Patient/Caregiver Discharge Instructions Discharge Activity: activity as tolerated Education Materials: Preventing Food Poisoning, Foodborne Illness (Food Poisoning), Bacterial Gastroenteritis Print Language: Albanian Activity Restrictions/Additional Instructions: Follow-up with Dr. Rojas in 1 to 2 weeks Stand Alone Forms: [facility] Award Info., Patient Portal Info Letter Discharge Order Discharge Orders: Discharge (Routine); Ordered 12/13/24 Ordered By: Joon Rojas
== END 2024-12-13 11:23 | disposition home or self-care (01) ==
LOC: SERX 12-12 05:12 → SERHOLD 12-12 06:45 → S3SX 12-12 07:52
PROVIDERS: Physician Assistant; Admitting Provider Internal Medicine; Emergency Provider Emergency Medicine; PCP Internal Medicine; Visit Provider Internal Medicine
DX: K52.9 Noninfective gastroenteritis and colitis, unspecified (principal); A05.9 Bacterial foodborne intoxication, unspecified; N39.0 Urinary tract infection, site not specified; N17.9 Acute kidney failure, unspecified; I10 Essential (primary) hypertension; E86.0 Dehydration; E78.00 Pure hypercholesterolemia, unspecified
CPT/HCPCS: 36415; 74176; 80053; 80307; 81001; 83605; 83690; 83735; 84100; 84145; 85025; 85610; 87040; 87086; 87400; 87811; 96361; 96365; 96366; 96372; 99285; G0378; J0456; J0744; J1644; J7030; J7050; J7120; Q0162; A9270

== ENCOUNTER → 2025-02-19 | Outpatient (CLI) | payer OTHER, MEDICAID, SELFPAY ==
[2025-02-19 16:49] LABS: Alanine Aminotransferase 24 U/L (10-49); Albumin, Serum 4.3 gm/dL (3.4-4.8); Albumin/Globulin Ratio 1.7 (1.2-2.2); Alkaline Phosphatase 84 U/L (46-116); Anion Gap 6 (7-16); Aspartate Amino Transferase 26 U/L (0-34); BUN/Creatinine Ratio 15 Ratio (12-20); Bilirubin,Total 0.7 mg/dL (0.3-1.2); Blood Urea Nitrogen 15 mg/dL (9-23); Calcium 9.2 mg/dL (8.3-10.6); Calcium (Corrected) 9.2 mg/dL (8.5-10.1); Carbon Dioxide 30.4 mMol/L (20.0-31.0); Chloride 103 mMol/L (98-107); Creatinine (Component) 1.0 mg/dL (0.6-1.3); Globulin 2.5 gm/dL (2.3-3.5); Glucose 95 mg/dL (74-106); Osmolality,Calculated 278 (275-295); Potassium 4.4 mMol/L (3.4-5.1); Sodium 139 mMol/L (136-145); Total Protein 6.8 gm/dL (5.7-8.2); eGFR > 60 See Note
== END | disposition home or self-care (01) ==
PROVIDERS: PCP Internal Medicine; Referring Provider Internal Medicine; Visit Provider Internal Medicine
DX: N17.9 Acute kidney failure, unspecified (principal)
CPT/HCPCS: 36415; 80053